=== PATIENT | male | born 1950 | race Caucasian/White ===

== ENCOUNTER 2021-02-26 19:55 | Emergency (ER) | payer OTHER ==
[~2021-02-26] VITALS: Ht 182.9 cm; Wt 101.6 kg
[2021-02-26] MEDS ORDERED: CLONAZEPAM 0.50.5 M1 PO (20:08)
[2021-02-26] MEDS ORDERED: LIPITOR10 MG PO (20:08)
[2021-02-26] MEDS ORDERED: AMARYL1 MG PO (20:09)
[2021-02-26] MEDS ORDERED: GRALISE600 MG PO (20:09)
[2021-02-26] MEDS ORDERED: DULOXETINE HCL60 MG PO (20:09)
[2021-02-26] MEDS ORDERED: HYDROCHLOROTH12.5 M1 PO (20:09)
[2021-02-26] MEDS ORDERED: CLARITIN10 MG PO (20:10)
[2021-02-26] MEDS ORDERED: JARDIANCE25 MG PO (20:10)
[2021-02-26] MEDS ORDERED: METFORMIN HCL500 M3 PO (20:11)
[2021-02-26] MEDS ORDERED: COZAAR 25 MG TA25 M2 PO (20:11)
[2021-02-26] MEDS ORDERED: PROVIGIL 200 M200 MG PO (20:11)
[2021-02-26] MEDS ORDERED: OMEPRAZOLE 20 M20 M1 PO (20:12)
[2021-02-26] MEDS ORDERED: NAPROXEN500 MG PO (20:12)
[2021-02-26] MEDS ORDERED: REQUIP 0.25 M0.25 M1 PO (20:13)
[2021-02-26] MEDS ORDERED: OXYCODONE PO (20:13)
[2021-02-26 20:46] LABS: ABSOLUTE NEUTROPHILS 3.1 thou/uL (1.4-8.2); BASOPHILS 0.8 % (0.0-2.0); HEMATOCRIT 45.2 % (42.0-52.0); HEMOGLOBIN 14.6 gm/dL (14.0-18.0); LYMPHOCYTES 24.7 % (24.0-44.0); MCH 27.2 pg (26.0-34.0); MCHC 32.4 g/dL (28.0-37.0); MONOCYTES 9.9 % (1.0-8.0); PLATELET COUNT 196 thou/uL (150-400); POLYS 63.6 % (36.0-66.0); RBC 5.38 mil/uL (4.50-6.00); RDW 16.4 % (10.5-14.5); WBC 4.9 thou/uL (4.0-11.0)
[2021-02-26 21:09] LABS: CALCIUM 9.6 mg/dL (8.5-10.1); CREATININE 0.9 mg/dL (0.7-1.3)
[2021-02-26 21:15] LABS: TOTAL BILIRUBIN 0.4 mg/dL (0.2-1.0); TOTAL PROTEIN 7.4 g/dL (6.4-8.2)
[2021-02-26] MEDS ORDERED: AUGMENTIN 875-1 EACH PO (23:18)
[2021-02-26 23:21] VITALS: BP 165/98
[2021-02-26] MEDS ORDERED: PERCOCET 5-3251 EACH PO (23:37)
== END 2021-02-26 23:25 | disposition home or self-care (01) ==
LOC: ER 19:55
PROVIDERS: Physician Assistant
DX: L03.213 Periorbital cellulitis (principal); H57.11 Ocular pain, right eye; E11.9 Type 2 diabetes mellitus without complications; I10 Essential (primary) hypertension; E78.00 Pure hypercholesterolemia, unspecified; Z98.890 Other specified postprocedural states; Z79.84 Long term (current) use of oral hypoglycemic drugs; Z79.891 Long term (current) use of opiate analgesic; Z79.899 Other long term (current) drug therapy; Z91.040 Latex allergy status